=== PATIENT | female | born 1940 | race Caucasian/White ===

== ENCOUNTER 2023-11-29 11:32 | Inpatient (IN) | payer MEDICARE, OTHER ==
[~2023-11-29] VITALS: Ht 162.6 cm; Wt 52.2 kg
[2023-11-29 12:00] LABS: BASOPHILS % (AUTO) 0.4 % (0.0-2.0); EOSINOPHILS # (AUTO) 0.1 K/uL (0.0-0.7); EOSINOPHILS % (AUTO) 1.3 % (0.0-7.0); HEMATOCRIT 35.4 % (31.2-41.9); HEMOGLOBIN 11.5 g/dL (10.9-14.3); MEAN CORPUSCULAR HEMOGLOBIN 27.1 uug (24.7-32.8); MEAN CORPUSCULAR HGB CONC 33 g/dL (32.3-35.6); MONOCYTES # (AUTO) 1.1 K/uL (0.1-1.30); MONOCYTES % (AUTO) 22.5 % (0.0-11.0); NEUTROPHILS # (AUTO) 2.7 K/uL (1.8-8.9); NEUTROPHILS % (AUTO) 54.8 % (38.5-71.5); PLATELET COUNT (AUTO) 69 K/uL (179-408); RED BLOOD CELL COUNT(AUTO) 4.26 MIL/uL (3.63-4.92); RED CELL DISTRIBUTION WIDTH 14.9 % (12.3-17.7); WHITE BLOOD COUNT (AUTO) 4.9 K/uL (3.8-11.8)
[2023-11-29 12:17] LABS: CALCIUM 8.4 mg/dL (8.5-10.1); CREATININE 0.8 mg/dL (0.6-1.3); POTASSIUM 4.5 mmol/L (3.5-5.1)
[2023-11-29 12:23] LABS: ALBUMIN 3.2 g/dL (3.4-5.0); BILIRUBIN,DIRECT 0.1 mg/dL (0.0-0.2); BILIRUBIN,TOTAL 0.4 mg/dL (0.2-1.0); TOTAL PROTEIN, SERUM 6.6 g/dL (6.4-8.2)
[2023-11-29 12:26] LABS: DIFFERENTIAL COMMENT 1
[2023-11-29] MEDS ORDERED: IOHEXOL 300MG/ML 100 ML INFUS..BTL ONE (12:41)
[2023-11-29] MEDS ORDERED: SWABABLE VALVE TRANSFER SET EA MC ONE (12:41)
[2023-11-29] MEDS ORDERED: IV NORMAL SALINE 250 ML IV ONE (12:42)
[2023-11-29] MEDS ORDERED: NAPROXEN 500 MG TABLET PO ONE (13:15)
[2023-11-29] MEDS ORDERED: LIDOCAINE 5% PATCH TD ONE ×2 (13:15→13:19)
[2023-11-29] MEDS ORDERED: ACETAMINOPHEN 325 MG TABLET PO ONE (13:15)
[2023-11-29] MEDS ORDERED: NAPROXEN 500 MG TABLET ONE (13:18)
[2023-11-29] MEDS ORDERED: ACETAMINOPHEN 325 MG TABLET ONE (13:18)
[2023-11-29] MEDS ORDERED: CEFTRIAXONE /D5W 50ML IVPB **ER PYXIS IV ONE (15:11)
[2023-11-29] MEDS ORDERED: AZITHROMYCIN 500MG/ D5W 250ML IVPB **ER PYXIS ONLY IV ONE (15:12)
[2023-11-29] MEDS ORDERED: CEFTRIAXONE 1 G in IV DEXTROSE 5% 50 ML IV ONE (15:15)
[2023-11-29] MEDS ORDERED: AZITHROMYCIN IV 500 MG in IV DEXTROSE 5% 250 ML IV ONE (15:15)
[2023-11-29 16:42] LABS: BAND % (MANUAL) 5 % (0-10); LYMPHOCYTES % (MANUAL) 22 % (20-40); MONOCYTES % (MANUAL) 21 % (2-10); NEUTROPHILS % (MANUAL) 52 % (42-75)
[2023-11-29 16:43] LABS: PLATELET ESTIMATE DECREASED
[2023-11-29] MEDS ORDERED: ONDANSETRON 4 MG/2 ML VIAL IV PRN (18:45)
[2023-11-29] MEDS ORDERED: MORPHINE SULFATE 2 MG/1 ML DISP.SYRIN IV PRN (18:45)
[2023-11-29] MEDS ORDERED: TEMAZEPAM 15 MG CAPSULE PO PRN (18:45)
[2023-11-29] MEDS ORDERED: ENALAPRILAT DIHYDRATE 1.25 MG/1 ML VIAL IV PRN (18:45)
[2023-11-29] MEDS ORDERED: levoFLOXacin 500 MG/D5W 500 MG in PREMIXED 1 EACH IV SCH (18:45)
[2023-11-29] MEDS ORDERED: MAGNESIUM HYDROXIDE 30 ML LIQUID UDC PO PRN (18:45)
[2023-11-29] MEDS ORDERED: levoFLOXacin 500 MG/D5W 100 ML ONE (21:39)
[2023-11-29] MEDS ORDERED: METOPROLOL TARTRATE 50 MG TABLET PO SCH (21:49)
[2023-11-29 23:44] VITALS: BP 143/80; TEMP 97.6; O2SAT 93
[2023-11-30] MEDS: ACETAMINOPHEN 325 MG TABLET PO PRN ×2 (00:25→11:08)
[2023-11-30 04:05] VITALS: BP 166/69; TEMP 97.8; O2SAT 92
[2023-11-30 04:15] VITALS: BP 147/65; O2SAT 93
[2023-11-30] MEDS ORDERED: levoFLOXacin 500 MG/D5W 500 MG in PREMIXED 1 EACH IV SCH (05:45)
[2023-11-30] MEDS: PANTOPRAZOLE SODIUM 40 MG TABLET.DR PO SCH ×2 (06:17→06:37)
[2023-11-30 08:33] LABS: BASOPHILS % (AUTO) 0.5 % (0.0-2.0); EOSINOPHILS # (AUTO) 0.1 K/uL (0.0-0.7); EOSINOPHILS % (AUTO) 1.8 % (0.0-7.0); HEMATOCRIT 35.8 % (31.2-41.9); HEMOGLOBIN 11.6 g/dL (10.9-14.3); LYMPHOCYTES # (AUTO) 1.2 K/uL (0.8-4.8); LYMPHOCYTES % (AUTO) 25.6 % (20.5-51.5); MEAN CORPUSCULAR HEMOGLOBIN 26.9 uug (24.7-32.8); MEAN CORPUSCULAR HGB CONC 33 g/dL (32.3-35.6); MEAN CORPUSCULAR VOLUME 82.8 fL (75.5-95.3); MONOCYTES # (AUTO) 1.1 K/uL (0.1-1.30); MONOCYTES % (AUTO) 23.7 % (0.0-11.0); NEUTROPHILS # (AUTO) 2.2 K/uL (1.8-8.9); NEUTROPHILS % (AUTO) 48.4 % (38.5-71.5); PLATELET COUNT (AUTO) 77 K/uL (179-408); RED BLOOD CELL COUNT(AUTO) 4.33 MIL/uL (3.63-4.92); RED CELL DISTRIBUTION WIDTH 15.1 % (12.3-17.7); WHITE BLOOD COUNT (AUTO) 4.5 K/uL (3.8-11.8)
[2023-11-30 08:56] LABS: IRON, SERUM 66 ug/dL (50-175)
[2023-11-30 08:59] LABS: DIFFERENTIAL COMMENT 1
[2023-11-30 09:00] VITALS: BP 136/58; TEMP 97.2; O2SAT 93
[2023-11-30] MEDS: METOPROLOL TARTRATE 25 MG TABLET PO SCH ×2 (09:00→21:00)
[2023-11-30 09:12] LABS: ALANINE AMINOTRANSFERASE 16 U/L (14-59); ALBUMIN 3.2 g/dL (3.4-5.0); ALKALINE PHOSPHATASE 83 U/L (50-136); ASPARTATE AMINOTRANSFERASE 17 U/L (15-37); BILIRUBIN,TOTAL 0.5 mg/dL (0.2-1.0); CALCIUM 8.4 mg/dL (8.5-10.1); CARBON DIOXIDE 27 mmol/L (21-32); CHLORIDE 105 mmol/L (98-107); CHOLESTEROL 167 mg/dL (<200); CREATININE 0.7 mg/dL (0.6-1.3); GLUCOSE 94 mg/dL (74-106); HDL CHOLESTEROL 63 mg/dL (40-60); MAGNESIUM 2.2 mg/dL (1.8-2.4); NT-PRO BNP 324 pg/mL (0-125); POTASSIUM 4.1 mmol/L (3.5-5.1); SODIUM SERUM 140 mmol/L (136-145); TOTAL PROTEIN, SERUM 6.5 g/dL (6.4-8.2); TRIGLYCERIDES 81 MG/DL (30-150); UREA NITROGEN, BLOOD 13 mg/dL (7-18)
[2023-11-30 09:37] LABS: CREATINE KINASE, TOTAL 79 U/L (26-192)
[2023-11-30 11:21] VITALS: BP 130/58; TEMP 97.5; O2SAT 94
[2023-11-30 11:40] LABS: THYROID STIMULATING HORMONE 1.984 mIU/mL (0.358-3.740)
[2023-11-30 14:20] LABS: *RHEUMATOID FACTOR SCREEN NEGATIVE (NEGATIVE)
[2023-11-30 15:22] LABS: ANISOCYTOSIS 1+; BAND % (MANUAL) 5 % (0-10); BASOPHILS % (MANUAL) 1 % (0-2); LYMPHOCYTES % (MANUAL) 27 % (20-40); MONOCYTES % (MANUAL) 18 % (2-10); NEUTROPHILS % (MANUAL) 49 % (42-75); PLATELET ESTIMATE DECREASED
[2023-11-30 15:37] VITALS: BP 126/63; TEMP 97.5; O2SAT 94
[2023-11-30 20:00] VITALS: BP 147/77; TEMP 97.5; O2SAT 94
[2023-11-30] MEDS ORDERED: DOCUSATE SODIUM 100 MG CAPSULE PO SCH (21:00)
[2023-11-30] MEDS: CEFEPIME HCL 1 G in IV DEXTROSE 5% 50 ML IV SCH (21:26)
[2023-12-01 04:00] VITALS: BP 151/80; TEMP 97.6; O2SAT 95
[2023-12-01] MEDS: CEFEPIME HCL 1 G in IV DEXTROSE 5% 50 ML IV SCH ×2 (05:08→13:27)
[2023-12-01] MEDS: PANTOPRAZOLE SODIUM 40 MG TABLET.DR PO SCH (06:38)
[2023-12-01 08:11] LABS: *IMMUNOGLOBULIN G, SERUM 781 mg/dL (586-1602); IMMUNOGLOBULIN A, SERUM 123 mg/dL (64-422); IMMUNOGLOBULIN M, SERUM 83 mg/dL (26-217)
[2023-12-01] MEDS: METOPROLOL TARTRATE 25 MG TABLET PO SCH (09:37)
[2023-12-01] MEDS: ACETAMINOPHEN 325 MG TABLET PO PRN (10:52)
[2023-12-01 11:08] LABS: *ANTI-SCLERODERMA-70 AB <0.2 AI (0.0-0.9); *RNP ANTIBODIES <0.2 AI (0.0-0.9); *SJOGREN'S ANTI-SS-A <0.2 AI (0.0-0.9); *SJOGREN'S ANTI-SS-B 0.4 AI (0.0-0.9); *SMITH ANTIBODIES 1.2 AI (0.0-0.9); ANTI-DNA(DS) AB, QN <1 IU/mL (0-9); ANTI-NUCLEAR AB DIRECT Positive (Negative); CARCINOEMBRYONIC AG (CEA) 6.4 ng/mL (0.0-4.7); HEPATITIS B SURFACE AB, QUAL Non Reactive (.); HEPATITIS B SURFACE AG Negative (Negative); HEPATITIS C VIRUS ANTIBODY Non Reactive (Non Reactive)
[2023-12-01 12:09] VITALS: BP 122/62; TEMP 98.1; O2SAT 92
[2023-12-01] MEDS ORDERED: METO25TA6 PO (13:28)
[2023-12-02 04:08] LABS: A/G RATIO 1.1 (0.7-1.7); ALBUMIN 3.2 g/dL (2.9-4.4); ALPHA-1-GLOBULIN 0.3 g/dL (0.0-0.4); ALPHA-2-GLOBULIN 0.7 g/dL (0.4-1.0); BETA GLOBULIN 0.9 g/dL (0.7-1.3); GAMMA GLOBULIN 0.9 g/dL (0.4-1.8); GLOBULIN, TOTAL 2.8 g/dL (2.2-3.9); M-SPIKE Not Observed g/dL (Not Observed)
== END 2023-12-01 14:20 | DRG 542 ==
LOC: ER 11:32 → TRANSITION 21:24 → TELE3 21:57 → MEDSURG3 11-30 09:30
PROVIDERS: ADMIT Internal Medicine; ATTEND Internal Medicine
DX: M80.0AXA Age-related osteoporosis with current pathological fracture, other site, initial encounter for fracture (principal); J18.9 Pneumonia, unspecified organism; E44.1 Mild protein-calorie malnutrition; J98.11 Atelectasis; Z68.1 Body mass index [BMI] 19.9 or less, adult; G91.2 (Idiopathic) normal pressure hydrocephalus; S27.322A Contusion of lung, bilateral, initial encounter; W01.0XXA Fall on same level from slipping, tripping and stumbling without subsequent striking against object, initial encounter; D69.6 Thrombocytopenia, unspecified; E88.09 Other disorders of plasma-protein metabolism, not elsewhere classified; Z98.2 Presence of cerebrospinal fluid drainage device; K44.9 Diaphragmatic hernia without obstruction or gangrene; M41.9 Scoliosis, unspecified; I70.0 Atherosclerosis of aorta; Z91.81 History of falling; Z74.09 Other reduced mobility; Y93.9 Activity, unspecified; Y92.89 Other specified places as the place of occurrence of the external cause; R93.5 Abnormal findings on diagnostic imaging of other abdominal regions, including retroperitoneum; F03.90 Unspecified dementia, unspecified severity, without behavioral disturbance, psychotic disturbance, mood disturbance, and anxiety; C76.8 Malignant neoplasm of other specified ill-defined sites
CPT/HCPCS: 36415; 70030-TC; 71260; 73080; 82378; 82784; 83550; 83605; 83735; 84100; 84155; 84165; 84443; 84484; 85025; 85730; 86038; 86300; 86334; 86430; 86706; 86803; 87040; 87340; 93005; G0378; J0456; J0692; J0696; J1956; Q9967